=== PATIENT | female | born 1955 | race Caucasian/White ===

== ENCOUNTER 2018-10-06 11:03 | Outpatient (CLI) | payer BC ==
--- NOTE | 2018-10-06 12:58 | MMO ---
Bilateral MAMMO Bilat Screen [facility]. CLINICAL HISTORY: Patient is 63 years old and is seen for screening. The patient has no family history of breast cancer. The patient has no personal history of cancer. The patient has a history of left Excisional Biopsy in January, - benign. VIEWS: The views performed were: bilateral craniocaudal with tomosynthesis and bilateral mediolateral oblique with tomosynthesis. FILMS COMPARED: The present examination has been compared to prior imaging studies performed at [facility] on 08/03/2013, 08/28/2014, 11/05/2015 and 11/09/2016. MAMMOGRAM FINDINGS: There are scattered fibroglandular densities. Finding 1: There are stable benign appearing calcifications seen in both breasts. Finding 2: There is a new round mass measuring 5 millimeters with microlobulated margins seen in the middle inner region of the left breast located 8 centimeters from the nipple. Finding 3: There is a round mass measuring 4 millimeters with circumscribed margins seen in the anterior upper-outer region of the left breast located 3 centimeters from the nipple. IMPRESSION: FINDING 1: STABLE CALCIFICATIONS IN BOTH BREASTS ARE BENIGN. FINDING 2: NEW MASS IN THE MIDDLE INNER REGION OF THE LEFT BREAST LOCATED 8 CENTIMETERS FROM THE NIPPLE REQUIRES ADDITIONAL EVALUATION. ADDITIONAL PROJECTIONS (LEFT CRANIOCAUDAL SPOT COMPRESSION; LEFT MEDIOLATERAL OBLIQUE SPOT COMPRESSION; AND LEFT MEDIOLATERAL) ARE RECOMMENDED. AN ULTRASOUND EXAM IS RECOMMENDED IF NEEDED. ADDITIONAL IMAGING. FINDING 3: MASS IN THE ANTERIOR UPPER-OUTER REGION OF THE LEFT BREAST LOCATED 3 CENTIMETERS FROM THE NIPPLE REQUIRES ADDITIONAL EVALUATION. ADDITIONAL PROJECTIONS (LEFT CRANIOCAUDAL SPOT COMPRESSION; LEFT MEDIOLATERAL OBLIQUE SPOT COMPRESSION; AND LEFT MEDIOLATERAL) ARE RECOMMENDED. AN ULTRASOUND EXAM IS RECOMMENDED IF NEEDED. ADDITIONAL IMAGING. THE RESULTS OF THIS EXAM WERE SENT TO THE PATIENT. ACR BI-RADS Category 0 - Incomplete: Need additional imaging evaluation. [facility] will notify the patient of the need for additional imaging services. MAMMOGRAPHY NOTE: 1. A negative mammogram report should not delay a biopsy if a dominant of clinically suspicious mass is present. 2. Approximately 10% to 15% of breast cancers are not detected by mammography. 3. Adenosis and dense breasts may obscure an underlying neoplasm. Reported by: GIGI FAY MD Electonically Signed: [id number]
== END 2018-10-06 11:04 | disposition home or self-care (01) ==
LOC: BICMAMMO 11:03
PROVIDERS: ATTEND Family Medicine
DX: Z12.31 Encounter for screening mammogram for malignant neoplasm of breast (principal); R92.1 Mammographic calcification found on diagnostic imaging of breast
CPT/HCPCS: 77063; 77067

== ENCOUNTER 2018-11-25 19:09 | Emergency (ER) | payer BC ==
[~2018-11-25 19:09] MED LIST: ISOVUE-370 76%-LOCM 1 ML ONE
[2018-11-25 20:08] LABS: #Basophils 0.1 thou/uL (0.0-0.2); #Eosinphils 0.6 thou/uL (0.0-0.7); #Neutrophils 10.3 thou/uL (1.40-6.50); %Basophils 0.8 % (0.0-1.0); %Lymphocytes 14.2 % (21.0-51.0); %Monocytes 7.3 % (0.0-10.0); %Neutrophils 73.7 % (42.0-75.0); Hemoglobin 14.7 g/dL (12.0-16.0); Mean Corpuscular HGB CONC 33.5 g/dL (32.0-36.0); Mean Corpuscular Hemoglobin 31.6 pg (27.0-31.0); Mean Corpuscular Volume 94.3 fL (78.0-98.0); Mean Platelet Volume 8.2 fL (7.4-10.4); Platelet Count 257 thou/uL (130-400); RBC Distribution Width 14.2 % (11.5-14.5); Red Blood Cell (RBC) Count 4.64 mill/uL (4.20-5.40); White Blood Cell (WBC) Count 13.9 thou/uL (4.8-10.8)
[2018-11-25 20:33] LABS: ALT (SGPT) 27 U/L (8-55); AST (SGOT) 21 U/L (5-34); Albumin 4.2 g/dL (3.4-4.8); Alkaline Phosphatase 89 U/L (40-150); Anion Gap 14 mmol/L (10-20); BUN (Urea Nitrogen) 17 mg/dL (9.8-20.1); Bilirubin, Total 0.6 mg/dL (0.2-1.2); Calc. Creatinine Clearance 0 mL/min (70-130); Calcium 9.3 mg/dL (7.8-10.44); Carbon Dioxide 24 mmol/L (23-31); Chloride 99 mmol/L (98-107); Estimated GFR-MDRD 42; Globulin 3.1 g/dL (2.4-3.5); Glucose 101 mg/dL (80-115); Potassium 4.1 mmol/L (3.5-5.1); Protein, Total 7.3 g/dL (6.0-8.3); Sodium 133 mmol/L (136-145)
[2018-11-25 20:55] LABS: Bilirubin Negative (Negative); Blood, Urine Negative (Negative); Clarity Clear (Clear); Glucose, Urine (Dipstick) Normal (Negative); Leukocyte 75 Leu/uL (Negative); Nitrite Negative (Negative); Protein, Urine (Dipstick) Negative (Neg-Trace); RBC/HPF 0-3 HPF (0-3); Squamous Epithelial 0-3 HPF (0-3); Urobilinogen Normal mg/dL (Less than 2)
--- NOTE | 2018-11-25 20:59 | RAD ---
EXAM: Single view of the chest HISTORY: Cough COMPARISON: 08/31/2012 FINDINGS: Single view of the chest shows a normal sized cardiomediastinal silhouette. There is no heena dence of consolidation, mass, or pleural effusion. The bones are unremarkable. IMPRESSION: No evidence of acute cardiopulmonary disease
[2018-11-25 21:07] LABS: Bacteria/HPF None Seen HPF (None Seen)
[2018-11-25] MEDS ORDERED: Ketorolac Tromethamine 30 MG/ML VIAL ONE ×2 (21:17→21:26)
[2018-11-25] MEDS ORDERED: methylPREDNISolone Sod Succ/PF 125 MG/2 ML VIAL ONE ×2 (21:17→21:26)
[2018-11-25] MEDS ORDERED: Famotidine/PF 20 mg/2ml Vial ONE ×2 (21:17→21:26)
[2018-11-25] MEDS ORDERED: diphenhydrAMINE 50 MG/ML VIAL ONE ×2 (21:17→21:26)
[2018-11-25] MEDS ORDERED: Ondansetron PF 4 MG/2 ML Vial ONE (21:42)
--- NOTE | 2018-11-25 22:23 | CT ---
CT Abdomen Pelvis W Con: 11/25/2018 8:48 PM CLINICAL INFORMATION: Fever and lower abdominal pain COMPARISON: 01/04/2011 TECHNIQUE: Multiple contiguous axial images were obtained and a CT of the abdomen and pelvis with IV contrast. C oronal and sagittal reformats were performed. FINDINGS: Lower Chest: within normal limits. Abdomen: Liver: Calcified granulomas Bile Ducts: Normal caliber. Gallbladder: Absent Pancreas: within normal limits. Spleen: Calcified granulomas Adrenals: within normal limits. Kidneys: 6.2 cm left renal cyst. Pelvis: Reproductive Organs: Status post hysterectomy Ureters: within normal limits. Bladder: within normal limits. Peritoneum: No ascites or free air, no fluid collection. Bowel: Normal caliber. Mesentery and Retroperitoneum: No enlarged mesenteric or retroperitoneal lymph nodes. Vessels: Normal. Abdominal Wall: within normal limits. Bones: Postsurgical and degenerative changes in the spine. IMPRESSION: 1. No evidence of acute intraabdominal or pelvic abnormality. 2. Left renal cyst
[2018-11-25] MEDS ORDERED: Promethazine HCl 25 MG/ML VIAL ONE (23:06)
== END 2018-11-26 00:28 | disposition home or self-care (01) ==
LOC: ERS 19:09
DX: N39.0 Urinary tract infection, site not specified (principal); Z87.442 Personal history of urinary calculi; Z79.82 Long term (current) use of aspirin; Z79.899 Other long term (current) drug therapy
CPT/HCPCS: 36415; 71045; 74177; 80053; 81003; 81015; 83605; 85025; 87040; 87086; 96361; 96374; 96375; J1200; J1885; J2405; J2550; J2930; Q9966; S0028

== ENCOUNTER 2018-12-04 08:56 | Outpatient (CLI) | payer BC ==
--- NOTE | 2018-12-04 10:07 | MMO ---
Left Breast MAMMO Unilat Diag [facility]DI LT+JOHN. CLINICAL HISTORY: Patient is 63 years old and is seen for diagnostic exam. The patient has no family history of breast cancer. The patient has no personal history of cancer. The patient has a history of left Excisional Biopsy in January, - benign. VIEWS: The views performed were: left craniocaudal spot compression with tomosynthesis and left mediolateral with tomosynthesis. FILMS COMPARED: The present examination has been compared to prior imaging studies performed at [facility] on 11/05/2015, 11/09/2016, 10/06/2018 and 12/04/2018. This study has been interpreted with the assistance of computer-aided detection. MAMMOGRAM FINDINGS: There are scattered fibroglandular densities. There are multiple subcentimeter stable nodules seen in the left breast when compared to prior mammography. There are no suspicious masses, suspicious calcifications, or new areas of architectural distortion. IMPRESSION: THERE IS NO MAMMOGRAPHIC EVIDENCE OF MALIGNANCY. A ROUTINE FOLLOW-UP MAMMOGRAM IN 1 YEAR IS RECOMMENDED. 3BTHE RESULTS OF THIS EXAM WERE SENT TO THE PATIENT.0B ACR BI-RADS Category 2 - Benign finding MAMMOGRAPHY NOTE: 1. A negative mammogram report should not delay a biopsy if a dominant of clinically suspicious mass is present. 2. Approximately 10% to 15% of breast cancers are not detected by mammography. 3. Adenosis and dense breasts may obscure an underlying neoplasm. Reported by: RAFAEL BROWN MD Electonically Signed: [id number]
--- NOTE | 2018-12-04 11:40 | ULT ---
FOCUSED ULTRASOUND LEFT BREAST: DATE: 12/04/2018. COMPARISON: None. HISTORY: Subcentimeter nodular density noted in medial left breast on recent screening and diagnostic mammogra phy. FINDINGS: Focused ultrasound of the medial aspect of the left breast at the 9 o'clock position obtained. Incid ental note is made of a hyperechoic area within the left breast at the 10 o'clock position measuring 8 x 5 mm suggesting fat necrosis. At the 9 o'clock position, there is a 6 x 5 x 4 mm hypoechoic area with increased through transmission suggesting a mildly complex mildly septated cyst. No solid mass or abnormal shadowing. IMPRESSION: BIRADS 2: Benign findings. Recommend annual screening mammography. POS: OFF
== END 2018-12-04 08:57 | disposition home or self-care (01) ==
LOC: BICMAMMO 08:56
PROVIDERS: ATTEND Family Medicine
DX: N63.20 Unspecified lump in the left breast, unspecified quadrant (principal)
CPT/HCPCS: G0279

== ENCOUNTER 2019-04-12 08:42 | Outpatient (CLI) | payer BC ==
[2019-04-13 12:20] LABS: #Basophils 0.1 thou/uL (0.0-0.2); #Eosinphils 0.6 thou/uL (0.0-0.7); #Lymphocytes 1.7 thou/uL (1.20-3.40); #Monocytes 0.8 thou/uL (0.11-0.59); #Neutrophils 5.9 thou/uL (1.40-6.50); %Eosinophils 6.5 % (0.0-10.0); %Lymphocytes 18.8 % (21.0-51.0); %Monocytes 8.6 % (0.0-10.0); %Neutrophils 65.1 % (42.0-75.0); Hemoglobin 14.5 g/dL (12.0-16.0); Mean Corpuscular HGB CONC 33.3 g/dL (32.0-36.0); Mean Corpuscular Volume 93.1 fL (78.0-98.0); Mean Platelet Volume 9.5 fL (7.4-10.4); Platelet Count 227 thou/uL (130-400); RBC Distribution Width 12.6 % (11.5-14.5); Red Blood Cell (RBC) Count 4.68 mill/uL (4.20-5.40); White Blood Cell (WBC) Count 9.1 thou/uL (4.8-10.8)
[2019-04-13 12:46] LABS: ALT (SGPT) 26 U/L (8-55); AST (SGOT) 23 U/L (5-34); Albumin 4.3 g/dL (3.4-4.8); Alkaline Phosphatase 72 U/L (40-110); Anion Gap 15 mmol/L (10-20); BUN (Urea Nitrogen) 10 mg/dL (9.8-20.1); Bilirubin, Total 0.5 mg/dL (0.2-1.2); Calc. Creatinine Clearance 0 mL/min (70-130); Calcium 9.8 mg/dL (7.8-10.44); Carbon Dioxide 26 mmol/L (23-31); Chloride 106 mmol/L (98-107); Estimated GFR-MDRD 48; Globulin 2.5 g/dL (2.4-3.5); Glucose 92 mg/dL (80-115); Potassium 4.6 mmol/L (3.5-5.1); Protein, Total 6.8 g/dL (6.0-8.3); Sodium 142 mmol/L (136-145)
== END 2019-04-12 08:43 | disposition home or self-care (01) ==
LOC: LABBT 08:42 → EDSTATUS 15:15
PROVIDERS: ATTEND Internal Medicine Cardiovascular Disease
DX: Z01.812 Encounter for preprocedural laboratory examination (principal); R07.9 Chest pain, unspecified
CPT/HCPCS: 80053; 85025

== ENCOUNTER 2019-04-16 05:59 | Day surgery (SDC) | payer BC ==
[2019-04-13 10:47] VITALS: BMI 41.0
[2019-04-16] MEDS ORDERED: Heparin (Artline) 1,000 ML ONE (06:30)
[2019-04-16] MEDS ORDERED: Lidocaine 1% (PF) 30 ML VIAL ONE (06:30)
[2019-04-16] MEDS ORDERED: Heparin 10,000 UNITS/1 ML VIAL ONE (07:14)
[2019-04-16] MEDS ORDERED: Nitroglycerin 100MG/250ML BOT 250 ML ONE (07:14)
[2019-04-16] MEDS ORDERED: Verapamil 5 MG/2 ML VIAL ONE (07:14)
[2019-04-16] MEDS ORDERED: Fentanyl 100 MCG/2 ML VIAL ONE (07:55)
[2019-04-16] MEDS ORDERED: Midazolam HCl 2 mg/2 ml Vial ONE ×3 (07:56→08:52)
[2019-04-16] MEDS ORDERED: Iopamidol 370 76% 100 ML VIAL ONE (08:53)
[2019-04-16] MEDS ORDERED: Heparin (Artline) 500 ML ONE (09:05)
[2019-04-16] MEDS ORDERED: Protamine Sulfate 50 MG/5 ML VIAL ONE (09:15)
[2019-04-16] MEDS ORDERED: HYDROmorphone 0.5 MG/0.5 ML SYRINGE SLOW IVP SCH (10:20)
[2019-04-16] MEDS ORDERED: HYDROmorphone 0.5 MG/0.5 ML SYRINGE ONE ×2 (10:25→13:15)
[2019-04-16] MEDS ORDERED: diphenhydrAMINE 50 MG/ML VIAL ONE (14:07)
== END 2019-04-16 16:35 | disposition home or self-care (01) ==
LOC: CCL 05:59
PROVIDERS: ATTEND Internal Medicine Cardiovascular Disease
PROC: B2111ZZ Fluoroscopy of Multiple Coronary Arteries using Low Osmolar Contrast (ICD-10-PCS; principal; 2019-04-16)
PROC: 4A023N7 Measurement of Cardiac Sampling and Pressure, Left Heart, Percutaneous Approach (ICD-10-PCS; principal; 2019-04-16)
DX: I25.10 Atherosclerotic heart disease of native coronary artery without angina pectoris (principal); I10 Essential (primary) hypertension; K58.9 Irritable bowel syndrome, unspecified; M10.9 Gout, unspecified; F32.9 Major depressive disorder, single episode, unspecified; K21.9 Gastro-esophageal reflux disease without esophagitis; G43.909 Migraine, unspecified, not intractable, without status migrainosus; E66.9 Obesity, unspecified; Z68.41 Body mass index [BMI] 40.0-44.9, adult; Z87.891 Personal history of nicotine dependence; Z79.899 Other long term (current) drug therapy; Z88.5 Allergy status to narcotic agent; Z88.8 Allergy status to other drugs, medicaments and biological substances; Z91.013 Allergy to seafood; Z91.018 Allergy to other foods; Z91.041 Radiographic dye allergy status; Z91.048 Other nonmedicinal substance allergy status
CPT/HCPCS: 85347; 93458; 93571; 93572; 99152; 99153; C1769; C1887; J0153; J1170; J1200; J1644; J2001; J2250; J2720; J3010; Q9967

== ENCOUNTER 2019-04-24 13:51 | Outpatient (CLI) | payer BC ==
--- NOTE | 2019-04-24 16:07 | ULT ---
DOPPLER ARTERIAL EVALUATION OF THE RIGHT UPPER EXTREMITY: 04/24/19 INDICATION: Pain within the right upper extremity. TECHNIQUE: George scale, color Doppler with spectral Doppler images were obtained of the arterial structures of th e right upper extremity. FINDINGS: There is appropriate flow resistant waveform within the right common carotid artery. There is appropr iate triphasic waveforms from the right subclavian artery through the left of the right axillary harrison ry, right brachial artery, right radial artery, and proximal ulnar artery. The waveform within the di stal ulnar artery was slightly difficult to assess at the level of the wrist. More biphasic waveform is seen within the distal right ulnar artery, some of which is related to sampling and angulation of the Doppler evaluation. IMPRESSION: Appropriate arterial waveforms seen within the arterial structures of the right upper extremity. POS: OFF
== END 2019-04-24 13:52 | disposition home or self-care (01) ==
LOC: ULT 13:51
PROVIDERS: ATTEND Internal Medicine Cardiovascular Disease
DX: M79.601 Pain in right arm (principal)
CPT/HCPCS: 93923

== ENCOUNTER 2019-10-16 13:22 | Outpatient (CLI) | payer MEDICARE, BC ==
--- NOTE | 2019-10-16 14:30 | MMO ---
Bilateral MAMMO Bilat Screen [facility]. CLINICAL HISTORY: Patient is 64 years old and is seen for screening. The patient has no family history of breast cancer. The patient has no personal history of cancer. The patient has a history of left needle biopsy in January, - benign. VIEWS: The views performed were: bilateral craniocaudal with tomosynthesis and bilateral mediolateral oblique with tomosynthesis. FILMS COMPARED: The present examination has been compared to prior imaging studies performed at [facility] on 11/09/2016, 10/06/2018 and 12/04/2018. This study has been interpreted with the assistance of computer-aided detection. MAMMOGRAM FINDINGS: There are scattered fibroglandular densities. Finding 1: Benign calcifications are noted bilaterally. Finding 2: There is a questionable nodular density in the left subaerolar breast There are no suspicious masses, suspicious calcifications, or new areas of architectural distortion. IMPRESSION: THERE IS NO MAMMOGRAPHIC EVIDENCE OF MALIGNANCY. A ROUTINE FOLLOW-UP MAMMOGRAM IN 1 YEAR IS RECOMMENDED. THE RESULTS OF THIS EXAM WERE SENT TO THE PATIENT. ACR BI-RADS Category 2 - Benign finding MAMMOGRAPHY NOTE: 1. A negative mammogram report should not delay a biopsy if a dominant of clinically suspicious mass is present. 2. Approximately 10% to 15% of breast cancers are not detected by mammography. 3. Adenosis and dense breasts may obscure an underlying neoplasm. Reported by: JEFFERY BRO MD Electonically Signed: [id number]
== END 2019-10-16 13:23 | disposition home or self-care (01) ==
LOC: BICMAMMO 13:22
PROVIDERS: ATTEND Family Medicine
DX: Z12.31 Encounter for screening mammogram for malignant neoplasm of breast (principal)
CPT/HCPCS: 77063; 77067

== ENCOUNTER 2019-10-18 13:06 | Outpatient (CLI) | payer BC, MEDICARE ==
--- NOTE | 2019-10-18 14:18 | MRI ---
MRI Lumbar Spine WO Con History: Lumbar radiculopathy Comparison: Lumbar spine radiographs 2019 Findings: Aortic contour is nonaneurysmal. Large cyst left kidney. No hydronephrosis. Paraspinal musculature is symmetric. No marrow infiltrative process. T10/T11 Modic type I endplate changes. Levels are as follows: L1/L2: Normal disc. Mild hypertrophic facet arthrosis. No neural foraminal or spinal canal narrowing. L2/L3: 1-2 mm retrolisthesis. Mild disc desiccation height loss is circumferential disc osteophyte co mplex. Moderate hypertrophic facet arthrosis. Mild effacement of ventral CSF space. Spinal canal measures 6 mm. Moderate bilateral neural foraminal narrowing. L3/L4: Mild disc desiccation and height loss with broad-based posterior disc bulge. Moderate right fa cet joint effusion. Moderate hypertrophic facet arthrosis. Abnormal posterior epidural fat. Moderate ligamentum flavum hypertrophy. Spinal canal is narrowed to 3-4 mm. Moderate to severe left a nd moderate right neural foraminal narrowing with abutment of the left exiting and traversing nerve roots. L4/L5: Prior discectomy change with disc cage. Mild hypertrophic facet arthrosis. Scar and bone graft along the transverse processes of L4 and L5. No neural foraminal or spinal canal narrowing. L5/S1: Prior discectomy change with disc cage. Anterolisthesis 11 mm. Bilateral pars interarticularis defects. Scar and bone graft along the bilateral L5/S1 transverse processes. Impression: 1. Multilevel spondylosis, greatest at L3/L4 with relatively high-grade spinal canal narrowing to 3-4 mm with nerve root crowding. 2. Grade 2 L4 over L5 anterolisthesis with bilateral pars interarticularis defects.
== END 2019-10-18 13:07 | disposition home or self-care (01) ==
LOC: TBSIIMAG 13:06
PROVIDERS: ATTEND Neurological Surgery
DX: M47.26 Other spondylosis with radiculopathy, lumbar region (principal); M43.16 Spondylolisthesis, lumbar region; M48.061 Spinal stenosis, lumbar region without neurogenic claudication
CPT/HCPCS: 72148

== ENCOUNTER 2019-12-21 06:22 | Outpatient (CLI) | payer MEDICARE, BC, OTHER ==
[2019-12-21 19:43] LABS: SARS-CoV-2 MS2 Positive; SARS-CoV-2 N Gene Negative; SARS-CoV-2 S Gene Negative; SARS-CoV-2 by NAA Not Detected (NotDetected); SARS-CoV-2 orf1ab Negative
== END 2019-12-21 06:23 | disposition home or self-care (01) ==
LOC: LABBT 06:22
PROVIDERS: ATTEND Neurological Surgery
DX: M54.16 Radiculopathy, lumbar region (principal); Z20.828 Contact with and (suspected) exposure to other viral communicable diseases
CPT/HCPCS: 87635; U0003

== ENCOUNTER 2019-12-26 06:35 | Day surgery (SDC) | payer MEDICARE, BC ==
[2019-12-21 11:25] VITALS: BMI 37.8
--- NOTE | 2019-12-26 05:12 | HP ---
HISTORY OF PRESENT ILLNESS: Ms. Chang is a pleasant 64-year-old woman with complaints of hip and leg pain. In 2009, she had an L4 to S1 fusion. In 2016, plates and screws were removed. She states she had some relief in the left leg and foot. She has attempted physical therapy and steroid epidural injections with no relief now for the past year. She has had pain in her bilateral hips. She states that she needs to rest after walking long distances due to numbness and weakness down into the knees. She reports throbbing pain that starts in the buttock and radiates over the top of the leg and stops at the knee. CT findings suggest multilevel stenosis, which is difficult to confirm. Newer MRI from [place] reveals severe central canal stenosis from L2 to L4. This very well likely explains the symptom she is experiencing. She hopes to move forward with surgery if possible. PAST MEDICAL HISTORY: Anxiety, arthritis, seasonal allergies, chronic pain syndrome, depression, cataract, gout, headaches, heart disease, hypertension, and gastroesophageal reflux disease. PAST SURGICAL HISTORY: section x2, cholecystectomy, lumbar back surgery, fusion and hardware removal, unspecified lung surgery, hysterectomy, tonsillectomy. CURRENT MEDICATIONS: Allopurinol, irbesartan, spironolactone, Bystolic, atorvastatin, clonidine. ALLERGIES: TO LATEX, TAPE, SHELLFISH, AND TREE NUTS. PHYSICAL EXAMINATION: The patient is alert and oriented x3. Gait is slowed and antalgic. ASSESSMENT: Lumbar spinal stenosis with neurogenic claudication, radiculopathy. PLAN: Dr. Otoole met with the patient, reviewed imaging, advocated for L2 to L4 decompression. He explained to the patient the risks, benefits, and alternatives to the procedure. The patient expressed understanding and elected to move forward with surgery as discussed. I do believe the patient is mentally competent and capable of making medical decisions for herself. We will move forward with surgery as planned. Job ID: [id number]
[2019-12-26] MEDS ORDERED: Bupivacaine HCl 0.5%/Epinephrine 1:200,000/PF 30 ml Vial ONE (06:40)
[2019-12-26] MEDS ORDERED: Thrombin 5000 UNITS/5 ML VIAL ONE (06:40)
[2019-12-26] MEDS ORDERED: Midazolam HCl 2 mg/2 ml Vial ONE ×2 (07:28→07:38)
[2019-12-26] MEDS ORDERED: Scopolamine 1.5 mg/72 hour Patch ONE (07:28)
[2019-12-26 07:38] LABS: Anion Gap 15 mmol/L (10-20); BUN (Urea Nitrogen) 15 mg/dL (9.8-20.1); Calc. Creatinine Clearance 84 mL/min (70-130); Calcium 9.1 mg/dL (7.8-10.44); Carbon Dioxide 22 mmol/L (23-31); Chloride 106 mmol/L (98-107); Estimated GFR-MDRD 53; Glucose 105 mg/dL (80-115); Potassium 3.7 mmol/L (3.5-5.1); Sodium 139 mmol/L (136-145)
[2019-12-26] MEDS ORDERED: Fentanyl 100 MCG/2 ML VIAL ONE ×5 (07:38→11:03)
[2019-12-26] MEDS ORDERED: SUGAMMADEX SODIUM 200 MG/2 ML VIAL ONE (09:34)
[2019-12-26] MEDS ORDERED: Glycopyrrolate 0.2 MG/ML 5 ML SYRINGE ONE (09:41)
[2019-12-26] MEDS ORDERED: Ondansetron PF 4 MG/2 ML Vial ONE (09:41)
[2019-12-26] MEDS ORDERED: PROPOFOL 200 MG/20 ML VIAL ONE (09:41)
[2019-12-26] MEDS ORDERED: Lidocaine 1% PF 5 ML VIAL ONE (09:41)
[2019-12-26] MEDS ORDERED: EPHEDRINE 25 MG/5 ML SYRINGE ONE (09:41)
[2019-12-26] MEDS ORDERED: Dexamethasone 20 MG/5 ML VIAL ONE (09:41)
[2019-12-26] MEDS ORDERED: PHENYLEPHRINE-NS 100 MCG/ML 10 ML SYRINGE ONE (09:41)
[2019-12-26] MEDS ORDERED: diphenhydrAMINE 50 MG/ML VIAL ONE (10:18)
[2019-12-26] MEDS ORDERED: traMADol HCl 50 MG TAB ONE (11:54)
--- NOTE | 2019-12-26 12:09 | OP ---
DATE OF PROCEDURE: 12/26/2019 [employer]AF[employer]Y DEPOSIT [employer]OXES CUSTODIAN: Oscar Hernandez PA-C INDICATION: Pain. DIAGNOSIS: Lumbar stenosis with claudication and lumbar radiculopathy. PROCEDURE PERFORMED: L2 through L4 decompression. ANESTHESIA: General. DESCRIPTION OF PROCEDURE: The patient was brought into the operating room and placed under general anesthesia. She was flipped from the supine to prone position on the operating room table. A linear incision was planned over the L2 through L4 segment. After prepping and draping and after an appropriate preoperative pause, the incision was created. The soft tissues were swept away from midline. Self-retaining retractors were placed for optimal exposure. After confirming the appropriate level with C-arm fluoroscopy, the spinous process of L3 was removed as was the inferior aspect of L2 and the superior aspect of L4. High-speed cutting drill bit was used to perform a complete laminectomy of L3 as well as the inferior aspect of L2 and the superior aspect of L4 in order to decompress the L2-L3 and L3-L4 segments. The laminectomies were extended laterally to encompass the medial aspect of the facet joints in order to decompress the lateral recesses. At the completion of the procedure, the lateral recesses and central canal were well decompressed. The wound was then irrigated. Hemostasis was maintained throughout. The wound was then closed in anatomic layers, and a pressure dressing was applied. There were no known procedural complications. Job ID: [id number]
[2019-12-26] MEDS ORDERED: CEFAZOLIN 1 GM VIAL ONE (12:49)
--- NOTE | 2019-12-27 07:14 | EKG ---
Test Reason : PREOP Blood Pressure : / mmHG Vent. Rate : 058 BPM Atrial Rate : 058 BPM P-R Int : 184 ms QRS Dur : 144 ms QT Int : 498 ms P-R-T Axes : 027 -04 045 degrees QTc Int : 488 ms Sinus bradycardia Right bundle branch block Abnormal ECG No previous ECGs available Confirmed by DR. Cale TAMEZ ([id number]) on 12/27/2019 7:13:37 AM Referred By: LUIS FERNANDO Confirmed By:DR. Cale TAMEZ
== END 2019-12-26 13:55 | disposition home or self-care (01) ==
LOC: SDC 06:35
PROVIDERS: ATTEND Neurological Surgery
PROC: 00NY0ZZ Release Lumbar Spinal Cord, Open Approach (ICD-10-PCS; principal; 2019-12-26)
DX: M48.062 Spinal stenosis, lumbar region with neurogenic claudication (principal); M54.16 Radiculopathy, lumbar region; G89.4 Chronic pain syndrome; F41.9 Anxiety disorder, unspecified; F32.9 Major depressive disorder, single episode, unspecified; I11.9 Hypertensive heart disease without heart failure; K21.9 Gastro-esophageal reflux disease without esophagitis; M19.90 Unspecified osteoarthritis, unspecified site; M10.9 Gout, unspecified; Z79.899 Other long term (current) drug therapy; Z88.5 Allergy status to narcotic agent; Z88.8 Allergy status to other drugs, medicaments and biological substances; Z91.013 Allergy to seafood; Z91.018 Allergy to other foods; Z91.040 Latex allergy status; Z91.048 Other nonmedicinal substance allergy status
CPT/HCPCS: 36415; 80048; 93005; 93010; J0690; J1100; J1200; J2250; J2405; J2704; J3010

== ENCOUNTER 2020-05-19 10:17 | Outpatient (CLI) | payer MEDICARE, BC ==
--- NOTE | 2020-05-19 11:07 | MMO ---
Left Breast MAMMO Unilat Diag [facility] LT+JOHN. CLINICAL HISTORY: Patient is 65 years old and is seen for diagnostic exam. The patient has no family history of breast cancer. The patient has no personal history of cancer. The patient has a history of left needle biopsy in January, - benign. VIEWS: The views performed were: left craniocaudal with tomosynthesis; left mediolateral oblique with tomosynthesis; and left mediolateral with tomosynthesis. FILMS COMPARED: The present examination has been compared to prior imaging studies performed at [facility] on 10/16/2019, 10/30/2019 and 05/19/2020. This study has been interpreted with the assistance of computer-aided detection. MAMMOGRAM FINDINGS: There are scattered fibroglandular densities. There is a stable nodule seen in the sub-areolar region of the left breast. IMPRESSION: STABLE NODULE IN THE LEFT BREAST IS PROBABLY BENIGN. AN ADDITIONAL SIX MONTH ULTRASOUND WELL MAMMOGRAM PART OF RETURN TO NORMAL SCREENING. THE RESULTS OF THIS EXAM WERE SENT TO THE PATIENT. ACR BI-RADS Category 3 - Probably benign finding - short interval follow-up suggested. [facility] will notify the patient of the need for additional imaging services. MAMMOGRAPHY NOTE: 1. A negative mammogram report should not delay a biopsy if a dominant of clinically suspicious mass is present. 2. Approximately 10% to 15% of breast cancers are not detected by mammography. 3. Adenosis and dense breasts may obscure an underlying neoplasm. Reported by: TONNY MORRIS MD Electonically Signed: [id number]
--- NOTE | 2020-05-19 11:11 | ULT ---
LEFT BREAST ULTRASOUND: Date: 05/19/2020 HISTORY: Follow-up of nodule. FINDINGS: At the 6 o'clock position, in the retroareolar region of the left breast, a complex cyst was noted on previous 10/30/2019 study. It was somewhat oblong in shape and it measured 3.0 x 8.0 mm. It now has a slightly more rounded contour, measuring 5.0 x 7.0 mm. It now is much more anechoic than on the diego or exam. No flow is demonstrated. This probably just represents evolution of a cyst as the width has decreased with increase in the more AP dimension. IMPRESSION: BI-RADS Category 3 - Probably benign finding. An additional 6 month follow-up ultrasound is recommend ed to be done as the same time as the mammogram study as part of patient's return to normal mammograp hic screening. The facility will notify patient of need for additional imaging services.
== END 2020-05-19 10:18 | disposition home or self-care (01) ==
LOC: BICMAMMO 10:17
PROVIDERS: ATTEND Family Medicine
DX: R92.8 Other abnormal and inconclusive findings on diagnostic imaging of breast (principal); N63.20 Unspecified lump in the left breast, unspecified quadrant
CPT/HCPCS: 76642; 77065; G0279

== ENCOUNTER 2020-08-27 08:17 | Outpatient (CLI) | payer MEDICARE, BC ==
[2020-08-27] MEDS ORDERED: Iopamidol 370 76% 100 ML VIAL ONE (10:18)
== END 2020-08-27 08:18 | disposition home or self-care (01) ==
LOC: CT 08:17
PROVIDERS: ATTEND Internal Medicine Gastroenterology
DX: R10.31 Right lower quadrant pain (principal); K76.0 Fatty (change of) liver, not elsewhere classified; K44.9 Diaphragmatic hernia without obstruction or gangrene; N28.1 Cyst of kidney, acquired
CPT/HCPCS: 74177; 82565; Q9967

== ENCOUNTER 2020-10-22 12:48 | Outpatient (CLI) | payer MEDICARE, BC ==
[~2020-10-22 12:48] MED LIST changes: -ISOVUE-370 76%-LOCM 1 ML ONE; +Magnevist 469MG/ML 20 ML VIAL ONE
== END 2020-10-22 12:49 | disposition home or self-care (01) ==
LOC: TBSIIMAG 12:48
PROVIDERS: ATTEND Neurological Surgery
DX: M47.26 Other spondylosis with radiculopathy, lumbar region (principal); R29.898 Other symptoms and signs involving the musculoskeletal system; M47.814 Spondylosis without myelopathy or radiculopathy, thoracic region; Z98.890 Other specified postprocedural states
CPT/HCPCS: 72146; 72158; 82565; A9579